=== PATIENT | male | born 1940 | race Caucasian/White ===

== ENCOUNTER 2020-11-06 15:38 | Observation (INO) ==
[2020-11-06] MEDS ORDERED: DILAUDID INJ IVP PRN (16:00)
--- NOTE | 2020-11-06 16:50 | VAS ---
HISTORYLEFT KNEE PAIN, RLE HEMATOMASTUDYLOWER EXT VENOUS, BILATERALCOMPARISONNo relevant prior studies available.[id number] grayscale and color Doppler images of the lower extremities.FINDINGSRight lower extremity:Common femoral, femoral and popliteal veins demonstrate normal compressibility, color Doppler flow, waveforms and augmentation with no filling defects.Soft tissues: Heterogeneous collection in the right popliteal fossa, with no internal color Doppler flow, measuring 5 x 2.8 cm.Left lower extremity:Common femoral, femoral and popliteal veins demonstrate normal compressibility, color Doppler flow, waveforms and augmentation with no filling defects.Soft tissues:UnremarkableIMPRESSION1. No evidence of deep venous thrombus in either lower extremity.2. Heterogeneous collection in the right popliteal fossa, with no internal color Doppler flow, is concerning for a hematoma which could be related to a ruptured popliteal cyst.Electronically signed by: Anthony Serna (Nov 06, 2020 16:48:43)
[2020-11-06 17:28] LABS: BASOPHILS % (AUTO) 0.2 % (0.2-1.0); EOSINOPHILS % (AUTO) 0.1 % (0.9-2.9); HEMATOCRIT 46.4 % (42.0-54.0); HEMOGLOBIN 15.9 g/dL (13.5-18.0); LYMPHOCYTES # (AUTO) 0.5 X10^3/uL (1.3-2.9); LYMPHOCYTES % (AUTO) 4.9 % (21.0-51.0); MEAN CORPUSCULAR HEMOGLOBIN 30.5 pg (27.0-34.0); MEAN CORPUSCULAR HGB CONC 34.3 g/dL (33.0-35.0); MEAN PLATELET VOLUME 10.3 fL (7.4-11.0); MONOCYTES # (AUTO) 0.9 x10^3/uL (0.3-0.8); MONOCYTES % (AUTO) 8.4 % (0.0-13.0); NEUTROPHILS # (AUTO) 9.4 x10^3/uL (2.2-4.8); NEUTROPHILS % (AUTO) 86.4 % (42.0-75.0); PLATELET COUNT 193 X10^3/uL (150.0-450.0); RED BLOOD COUNT 5.21 X10^6/uL (4.7-6.0); RED CELL DISTRIBUTION WIDTH 13.6 % (11.6-16.5); WHITE BLOOD COUNT 10.9 X10^3/uL (3.6-10.0)
[2020-11-06 17:36] LABS: ALANINE AMINOTRANSFERASE 27 Units/L (12-78); ALBUMIN 4.1 g/dL (3.4-5.0); ALKALINE PHOSPHATASE 94 Units/L (46-116); ASPARTATE AMINO TRANSFERASE 22 Units/L (15-37); BLOOD UREA NITROGEN 16 mg/dL (7-18); CALCIUM 9.8 mg/dL (8.5-10.1); CHLORIDE 105 mmol/L (98-107); COR NA(FOR HYPERGLY) 142 mmol/L (136-145); CREATININE 0.93 mg/dL (0.70-1.30); ERYTHROCYTE SEDIMENTATION RATE 12 MM/HOUR (0-15); SODIUM 141 mmol/L (136-145); TOTAL PROTEIN 7.4 g/dL (6.4-8.2); eGFR NON BLACK RACES > 60 (>60)
[2020-11-06 17:42] LABS: GIANT PLATELET FEW; PLATELET MORPHOLOGY COMMENT ABNORMAL (NORMAL)
[2020-11-06 18:12] VITALS: BMI 22.7
[2020-11-06] MEDS: ZOSYN VIAL 4.5 GRAMS 4.5 G in NS 100 ML IV + SPIKE MINIBAG* 100 ML IV SCH ×2 (18:17→21:40)
[2020-11-06] MEDS: NS 1000 ML 1,000 ML IV SCH (18:17)
[2020-11-07 04:54] LABS: BASOPHILS % (AUTO) 0.2 % (0.2-1.0); EOSINOPHILS % (AUTO) 0.4 % (0.9-2.9); HEMATOCRIT 39.6 % (42.0-54.0); LYMPHOCYTES # (AUTO) 1.2 X10^3/uL (1.3-2.9); LYMPHOCYTES % (AUTO) 14.4 % (21.0-51.0); MEAN CORPUSCULAR HEMOGLOBIN 30.7 pg (27.0-34.0); MEAN CORPUSCULAR VOLUME 87.6 fL (80.0-100.0); MEAN PLATELET VOLUME 10.8 fL (7.4-11.0); MONOCYTES # (AUTO) 1.4 x10^3/uL (0.3-0.8); NEUTROPHILS # (AUTO) 5.6 x10^3/uL (2.2-4.8); PLATELET COUNT 165 X10^3/uL (150.0-450.0); RED BLOOD COUNT 4.53 X10^6/uL (4.7-6.0); RED CELL DISTRIBUTION WIDTH 13.6 % (11.6-16.5); WHITE BLOOD COUNT 8.3 X10^3/uL (3.6-10.0)
[2020-11-07 05:10] LABS: ALANINE AMINOTRANSFERASE 19 Units/L (12-78); ALBUMIN 2.9 g/dL (3.4-5.0); ALKALINE PHOSPHATASE 69 Units/L (46-116); ASPARTATE AMINO TRANSFERASE 14 Units/L (15-37); BLOOD UREA NITROGEN 15 mg/dL (7-18); CALCIUM 9.1 mg/dL (8.5-10.1); CARBON DIOXIDE 25.1 mmol/L (21-32); CHLORIDE 109 mmol/L (98-107); COR NA(FOR HYPERGLY) 142 mmol/L (136-145); CREATININE 0.94 mg/dL (0.70-1.30); SODIUM 142 mmol/L (136-145); TOTAL PROTEIN 5.7 g/dL (6.4-8.2); eGFR NON BLACK RACES > 60 (>60)
[2020-11-07 05:35] LABS: GIANT PLATELET RARE; HEMOGLOBIN 13.9 g/dL (13.5-18.0)
[2020-11-07 05:36] LABS: PLATELET MORPHOLOGY COMMENT ABNORMAL (NORMAL)
[2020-11-07] MEDS: NS 1000 ML 1,000 ML IV SCH ×2 (05:44→21:23)
[2020-11-07] MEDS: ZOSYN VIAL 4.5 GRAMS 4.5 G in NS 100 ML IV + SPIKE MINIBAG* 100 ML IV SCH ×3 (05:44→22:09)
[2020-11-07] MEDS ORDERED: MICRO K EXTEN CAP 10 MEQ PO PRN (06:05)
[2020-11-07] MEDS ORDERED: POTASSIUM CHL 40 MEQ/NS 0.45% 500 ML IV PRN (06:05)
[2020-11-07] MEDS ORDERED: POTASSIUM CHL 60 MEQ/NS 0.45% 500 ML IV PRN (06:05)
[2020-11-07] MEDS ORDERED: K-DUR TAB 20 MEQ PO PRN (06:05)
[2020-11-07] MEDS ORDERED: K-RIDER 10 MEQ/NS 100 ML 10 MEQ/100 ML BAG IV PRN (06:05)
[2020-11-07] MEDS ORDERED: KLOR-CON PO PRN (06:05)
[2020-11-07] MEDS ORDERED: POTASSIUM CHLORIDE LIQ 20 MEQ UDC PO PRN (06:05)
[2020-11-07] MEDS ORDERED: KLOR-CON ONE (06:10)
--- NOTE | 2020-11-07 09:16 | RAD ---
HISTORYPRE OP DEBRIDMENTSTUDYCHEST x-ray, 1 VIEWCOMPARISONCT 04/07/[id number] mm nodular density is seen projected in the right suprahilar region. This is a bone island in the posterior aspect of the right 5th rib as seen on prior CT chest. CP angles are excluded on this image. Heart is normal in size. No pneumothorax, focal infiltrate, or pleural effusion is seen.IMPRESSIONNo acute cardiopulmonary abnormality is seen.Electronically signed by: Trevin Haywood (Nov 07, 2020 09:12:41)
[2020-11-07] MEDS: MAGNESIUM SULFATE 1 GRAM/100 mL PREMIX 1 GM/100 ML BAG IV PRN ×2 (10:20→14:49)
--- NOTE | 2020-11-07 10:22 | DR.UPDATE ---
H&P Update History and Physical Update: History and Physical reviewed and patient examined. Changes noted: Yes with the following: PRESENTED TO THE OFFICE ON 11/06 WITH COMPLAINTS OF LEFT KNEE PAIN AND SWELLING. HE ALSO COMPLAINED OF RIGHT LEG BRUISING AND SWELLING. EXAMINATION DID REVEAL MILD SWELLING TO THE LEFT KNEE. MILD ERRYTHEMA NOTED. THERE WAS A LARGE HEMATOMA NOTED TO THE RIGHT LATERAL LOWER ASPECT OF THE LEG. HE DENIES INJURY OR BEING BITTEN. HE RATED PAIN OF THE LEFT KNEE A 7/10. PAIN DESCRIBED SHARP. PAIN TO THE RIGHT LOWER LEG WAS DESCRIBED THROBBING AND RATED A 3/10. HE WAS ADMITTED TO THE HOSPITAL FOR FURTHER EVALUATION AND TREATMENT OF RLE HEMATOMA, INTRACTABLE LEFT KNEE PAIN. ON ARRIVAL TO THE HOSPITAL, VITALS WERE [id number]%-157/72. LABS WERE OBTAINED. ABNORMAL LAB VALUES INCLUDED THE FOLLOWING: WBC 10.9, D-DIMER 1.39, GLUCOSE 129, CRP 25.20. COVID-19 NEGATIVE. BILATERAL LOWER EXTREMITY VENOUS DOPPLERS WERE OBTAINED AND REVEALED: 1. No evidence of deep venous thrombus in either lower extremity. 2. Heterogeneous collection in the right popliteal fossa, with no internal color Doppler flow, is concerning for a hematoma which could be related to a ruptured popliteal cyst. WE PLAN TO CONSULT WITH , GENERAL SURGEON THIS MORNING DUE TO LARGE HEMATOMA. HE WAS STARTED ON NORMAL SALINE AT 50 ML/HR, THE POTASSIUM AND MAGNESIUM PROTOCOLS, DILAUDID 2MG IV Q4H PRN PAIN, AND ZOSYN 4.5G IV TID. WE WILL REVIEW HIS HOME MEDICATIONS AND RESUME APPROPRIATE. OTHERWISE, WE WILL FOLLOW UP WITH AM LABS AND CONTINUE TO MONITOR. TIME SPENT ON CLINICAL ASSESSMENT, REVIEWING LABS AND IMAGING, DECISION MAKING, AND DOCUMENTATION GREATER THAN 75 MINUTES. Prescription drug monitoring program results: PDMP was not reviewed H&P Reviewed: Yes Patient was examined?: Yes
[2020-11-07] MEDS ORDERED: ANTIVERT TAB 25 MG PO PRN (11:02)
[2020-11-07] MEDS ORDERED: LR 1000 ML IV 1,000 ML IV ONE (11:39)
[2020-11-07] MEDS ORDERED: BETADINE SOLN ONE (11:41)
[2020-11-07] MEDS ORDERED: XYLOCAINE 1 % (PLAIN) ONE (12:06)
[2020-11-07] MEDS ORDERED: POLYMYXIN B SULFATE ONE (12:18)
[2020-11-07] MEDS: ARICEPT TAB 5 MG PO SCH (14:46)
[2020-11-07] MEDS: LOPRESSOR TAB 25 MG PO SCH ×2 (14:46→21:00)
[2020-11-07] MEDS: TORADOL 30 MG VIAL IVP SCH ×2 (14:48→21:00)
[2020-11-07] MEDS ORDERED: NEURONTIN CAP 300 MG PO SCH (21:00)
[2020-11-07] MEDS ORDERED: OXYBUTYNIN CHLORIDE ER PO SCH (21:00)
[2020-11-07] MEDS ORDERED: FLOMAX PO SCH (21:00)
[2020-11-07] MEDS ORDERED: RESTORIL CAP 15 MG PO PRN (23:09)
[2020-11-08] MEDS: TORADOL 30 MG VIAL IVP SCH ×2 (03:00→08:58)
[2020-11-08 04:55] LABS: BASOPHILS % (AUTO) 0.3 % (0.2-1.0); EOSINOPHILS # (AUTO) 0.1 x10^3/uL (0.0-0.2); EOSINOPHILS % (AUTO) 1.1 % (0.9-2.9); HEMATOCRIT 37.8 % (42.0-54.0); HEMOGLOBIN 13.2 g/dL (13.5-18.0); LYMPHOCYTES # (AUTO) 0.9 X10^3/uL (1.3-2.9); LYMPHOCYTES % (AUTO) 10.3 % (21.0-51.0); MEAN CORPUSCULAR HEMOGLOBIN 30.6 pg (27.0-34.0); MEAN CORPUSCULAR HGB CONC 34.8 g/dL (33.0-35.0); MEAN CORPUSCULAR VOLUME 87.9 fL (80.0-100.0); MEAN PLATELET VOLUME 10.8 fL (7.4-11.0); MONOCYTES # (AUTO) 1.1 x10^3/uL (0.3-0.8); MONOCYTES % (AUTO) 12.8 % (0.0-13.0); NEUTROPHILS # (AUTO) 6.4 x10^3/uL (2.2-4.8); NEUTROPHILS % (AUTO) 75.5 % (42.0-75.0); PLATELET COUNT 151 X10^3/uL (150.0-450.0); RED CELL DISTRIBUTION WIDTH 13.4 % (11.6-16.5); WHITE BLOOD COUNT 8.4 X10^3/uL (3.6-10.0)
[2020-11-08 05:13] LABS: ALANINE AMINOTRANSFERASE 19 Units/L (12-78); ALBUMIN 2.6 g/dL (3.4-5.0); ALKALINE PHOSPHATASE 59 Units/L (46-116); ASPARTATE AMINO TRANSFERASE 16 Units/L (15-37); BLOOD UREA NITROGEN 15 mg/dL (7-18); CALCIUM 8.7 mg/dL (8.5-10.1); CARBON DIOXIDE 24.9 mmol/L (21-32); CHLORIDE 113 mmol/L (98-107); COR CA(FOR HYPOALB) 9.8 mg/dL (8.5-10.1); CREATININE 1.07 mg/dL (0.70-1.30); MAGNESIUM 2.1 mg/dL (1.7-2.9); SODIUM 145 mmol/L (136-145); TOTAL PROTEIN 5.4 g/dL (6.4-8.2); eGFR NON BLACK RACES > 60 (>60)
[2020-11-08] MEDS: NS 1000 ML 1,000 ML IV SCH (06:02)
[2020-11-08] MEDS: ZOSYN VIAL 4.5 GRAMS 4.5 G in NS 100 ML IV + SPIKE MINIBAG* 100 ML IV SCH (06:02)
[2020-11-08] MEDS: ARICEPT TAB 5 MG PO SCH (08:56)
[2020-11-08] MEDS: LOPRESSOR TAB 25 MG PO SCH (08:56)
[2020-11-08] MEDS ORDERED: NORVASC TAB 10 MG PO SCH (09:00)
[2020-11-08 09:17] VITALS: BP 147/73
== END 2020-11-08 11:05 | disposition home health service (06) ==
LOC: MED/SURG
PROVIDERS: ADMIT Internal Medicine; ATTEND Internal Medicine
DX: M79.81 Nontraumatic hematoma of soft tissue; R79.82 Elevated C-reactive protein (CRP); R60.0 Localized edema; B95.7 Other staphylococcus as the cause of diseases classified elsewhere; R26.89 Other abnormalities of gait and mobility; Z20.822 Contact with and (suspected) exposure to COVID-19; Z86.73 Personal history of transient ischemic attack (TIA), and cerebral infarction without residual deficits; Z79.01 Long term (current) use of anticoagulants; I10 Essential (primary) hypertension; M25.562 Pain in left knee